=== PATIENT | female | born 1945 | race Caucasian/White ===

== ENCOUNTER 2017-02-21 05:11 | Day surgery (SDC) | payer MEDICARE, MEDICAID ==
[~2017-02-21 05:11] MED LIST: ARTIFICIAL TEAR1512 LEFT EYE; CALCIUM 600 +1 EA10 PO; CITRATE OF MAG300 M1 PO; CLARITIN10 M6 PO; COLACE100 M1 PO; CRESTOR10 M1 PO; CYMBALTA30 M1 PO; CYMBALTA60 M1 PO; GLUCOPHAGE500 M3 PO; LANTUS100 UNITS/ SC; LASIX40 M1 PO; LEVAQUIN500 M1 PO; LEVOTHYROXINE125 MC1 PO; LYRICA225 M1 PO; METOPROLOL TART25 M1 PO; MIRALAX17 G2 PO; MIRAPEX0.25 M1 PO; NOVOLOG100 UNITS/ SC; NYSTATIN15 G2 TP; PERCOCET 5-3251 EACH PO; PLAVIX75 M1 PO; SENNOSIDES PO; TOPAMAX50 M3 PO; TYLENOL EXTRA500 M1 PO
== END 2017-02-21 11:45 ==
LOC: SRG 05:11 → SHSB 05:15 → ORE 07:31 → PACU 08:53 → SHSB 09:45
PROC: 0T768DZ Dilation of Right Ureter with Intraluminal Device, Via Natural or Artificial Opening Endoscopic (ICD-10-PCS; principal; 2017-02-21)
PROC: 0TF3XZZ Fragmentation in Right Kidney Pelvis, External Approach (ICD-10-PCS; 2017-02-21)
DX: N20.0 Calculus of kidney (principal); I12.9 Hypertensive chronic kidney disease with stage 1 through stage 4 chronic kidney disease, or unspecified chronic kidney disease; E11.22 Type 2 diabetes mellitus with diabetic chronic kidney disease; N18.3 Chronic kidney disease, stage 3 (moderate); I25.10 Atherosclerotic heart disease of native coronary artery without angina pectoris; I73.9 Peripheral vascular disease, unspecified; M19.90 Unspecified osteoarthritis, unspecified site; E03.9 Hypothyroidism, unspecified; F31.9 Bipolar disorder, unspecified; E11.42 Type 2 diabetes mellitus with diabetic polyneuropathy; G25.81 Restless legs syndrome; M54.5 Low back pain; G89.29 Other chronic pain; E66.9 Obesity, unspecified; Z87.891 Personal history of nicotine dependence; Z88.0 Allergy status to penicillin; Z88.8 Allergy status to other drugs, medicaments and biological substances; Z90.49 Acquired absence of other specified parts of digestive tract; Z98.890 Other specified postprocedural states
CPT/HCPCS: C1769; C2617; J0690; J3010